=== PATIENT | male | born 1975 | race Caucasian/White ===

== ENCOUNTER 2019-02-23 07:42 | Day surgery (SDC) | payer OTHER ==
[~2019-02-23 07:42] MED LIST: ACETAMINOPHEN 325 MG TABLET PO PRN; CEFAZOLIN SODIUM 2 GM in DEXTROSE 5%-WATER 100 ML IV PRN; IBUPROFEN 800 MG in NORMAL SALINE 250 ML IV PRN; PREGABALIN 50 MG CAPSULE PO PRN
[2019-02-23] MEDS ORDERED: ACETAMINOPHEN 325 MG TABLET ONE (07:50)
[2019-02-23] MEDS ORDERED: PREGABALIN 50 MG CAPSULE ONE (07:51)
[2019-02-23] MEDS ORDERED: FAMOTIDINE INJ/PF 20 MG/2 ML SDV IV ONE (08:31)
[2019-02-23 08:49] LABS: HEMATOCRIT 44.8 % (37.9-51.0); HEMOGLOBIN 15.7 g/dL (13.5-17.0); MEAN CORPUSCULAR HEMOGLOBIN 30.9 pg (27.0-33.4); MEAN CORPUSCULAR HGB CONC 34.9 g/dL (32.0-36.0); MEAN CORPUSCULAR VOLUME 88 fl (80-97); PLATELET COUNT 230 10^3/uL (150-450); RED BLOOD COUNT 5.07 10^6/uL (4.35-5.55); RED CELL DISTRIBUTION WIDTH 12.7 % (11.5-14.0); WHITE BLOOD COUNT 6.4 10^3/uL (4.0-10.5)
[2019-02-23 09:16] LABS: ANION GAP 11 (5-19); BLOOD UREA NITROGEN 12 mg/dL (7-20); CALCIUM 9.4 mg/dL (8.4-10.2); CARBON DIOXIDE 26 mmol/L (22-30); CHLORIDE 103 mmol/L (98-107); GLUCOSE 107 mg/dL (75-110); POTASSIUM 3.9 mmol/L (3.6-5.0)
[2019-02-23] MEDS ORDERED: HYDROMORPHONE HCL INJ/PF 2 MG/ML AMPULE ONE (10:10)
[2019-02-23] MEDS ORDERED: FENTANYL CITRATE INJ/PF 250 MCG/5 ML AMPULE ONE (10:10)
[2019-02-23] MEDS ORDERED: MIDAZOLAM 2 MG/2 ML INJ ONE (10:10)
[2019-02-23] MEDS ORDERED: PROPOFOL INJ 200 MG/20 ML VIAL IV ONE (10:11)
[2019-02-23] MEDS ORDERED: BUPIVACAINE HCL 0.25 % INJ/PF (2.5 MG/1 ML) 30 ML VIAL ONE (10:16)
[2019-02-23] MEDS ORDERED: PROMETHAZINE HCL INJ 25 MG/1 ML VIAL IV PRN (11:08)
[2019-02-23] MEDS ORDERED: DIPHENHYDRAMINE HCL 50 MG/ML VIAL IV PRN (11:08)
[2019-02-23] MEDS ORDERED: FENTANYL CITRATE INJ/PF 100 MCG/2 ML AMPUL IV PRN ×3 (11:08)
[2019-02-23] MEDS ORDERED: HYDROCODONE/ACETAMINOPHEN 10-325 MG TABLET ONE (14:22)
[2019-02-23] MEDS ORDERED: LIDOCAINE 2% INJ-PF (20 MG/ML) 2 ML AMPUL ONE (14:26)
[2019-02-23] MEDS ORDERED: ONDANSETRON HCL INJ/PF 4 MG/2 ML SDV ONE (14:26)
[2019-02-23] MEDS ORDERED: SUCCINYLCHOLINE CHLORIDE INJ 200 MG/10 ML VIAL ONE (14:26)
[2019-02-23] MEDS ORDERED: DEXAMETHASONE SOD PHOSPHATE INJ 4 MG/1 ML VIAL ONE (14:26)
[2019-02-23] MEDS ORDERED: VECURONIUM BROMIDE INJ 10 MG VIAL IV ONE (14:26)
[2019-02-23 15:41] VITALS: BP 125/67
--- NOTE | 2019-03-03 11:33 | Discharge Summary ---
Discharge Summary (SDC) - Discharge Final Diagnosis: Recurrent right inguinal hernia Date of Surgery: 02/23/19 Discharge Date: 02/23/19 Condition: Stable Forms: ASU Anesthesia D/C Instruction, Discharge POC-Surgical Service Treatment or Instructions: DIET TOLERATED NO LIFTING OVER 10 POUNDS NO PUSHING, PULLING, OR LIFTING TAKE MEDICATIONS DIRECTED FOLLOW UP DIRECTED NO TUB BATHS OR SWIMMING MAY SHOWER IN 48 HOURS Referrals: KENDRA HANSEN MD [ACTIVE STAFF] - 03/12/19 2:00 pm Discharge Diet: As Tolerated Respiratory Treatments at Home: Deep Breathing/Coughing, Incentive Spirometer Discharge Activity: Balance Activity w/Rest, No Driving, No Lifting Over 10 Pounds, No Lifting/Push/Pulling, No tub bath Report the Following to Your Physician Immediately: Shortness of Breath, Nausea, Vomiting, Increase in Pain, Fever over 101 Degrees, Unusual Bleeding, Redness, Swelling, Warmth, Increased Soreness, Drainage-Yellow, Drainage-Preciado, Drainage- Green, Drainage-Foul Smelling, Large Clots, Numbness, Tingling Sensation, Wheezing, Seizure, IV Site Infection Signs
--- NOTE | 2019-03-03 11:39 | Operative Report ---
Nonrecallable Operative Report DATE OF SURGERY: 02/23/19 PREOPERATIVE DIAGNOSIS: Recurrent right inguinal hernia POSTOPERATIVE DIAGNOSIS: Recurrent right indirect inguinal hernia OPERATION: Robot-assisted recurrent right inguinal hernia repair with mesh SURGEON: KENDRA HANSEN ANESTHESIA: GA TISSUE REMOVED OR ALTERED: None COMPLICATIONS: None apparent ESTIMATED BLOOD LOSS: Minimal PROCEDURE: Drains/implants: Large right inguinal 3 DMax hernia mesh. Procedure in detail: After informed consent was obtained, the patient was brought into the operating room and laid in the supine position. The area of the abdomen was prepped and draped in a normal sterile fashion. A supraumbilical incision was created with a 15 blade scalpel. Dissection was carried through the subcutaneous tissue using sharp and blunt dissection. The linea alba fascia was incised sharply, the abdomen was entered sharply. The balloon trocar was inserted, and pneumoperitoneum was achieved. 2 right and left 8 mm robotic trochars were then placed under direct laparoscopic visualization. The robot was then brought over the patient and docked appropriately. I then assumed my position at the surgeon's console. Attention was turned to the right groin. A preperitoneal dissection was undertaken. The peritoneum was scored 3 cm superior to the recurrent right indirect inguinal hernia defect. The preperitoneal dissection was undertaken using sharp dissection, blunt dissection, and electrocautery. The hernia sac was cleared from the cord structures, taking great care not to injure the cord structures. Next, a 3 DMax large inguinal hernia mesh was placed into the preperitoneal space. It was situated over the defect. It was sutured medially and superiorly using 2-0 Vicryl suture in simple interrupted fashion. Once the mesh was found to lie in good place, the peritoneum was closed using 2-0 V Lock suture in simple running fashion. The repair was then inspected. It was found to be in good order. The robot was then undocked, and I scrubbed back into the case. The trochars were then removed under direct laparoscopic visualization. No bleeding was noted. The supraumbilical fascia was closed using 0 Vicryl suture in [id number] fashion. The overlying skin was closed using 4-0 Vicryl Rapide suture in subcuticular fashion. Dressings were placed, and the procedure was concluded. All sponge, instrument, needle counts were correct x2. Condition: Stable.
== END 2019-02-23 15:25 | disposition home or self-care (01) ==
LOC: OROUT 07:42
PROVIDERS: ATTEND Surgery
DX: K40.91 Unilateral inguinal hernia, without obstruction or gangrene, recurrent (principal); Z79.899 Other long term (current) drug therapy; G47.33 Obstructive sleep apnea (adult) (pediatric)
CPT/HCPCS: 49651; S2900; 36415; 80048; 830; 85027; 86850; 86900; 86901; C1781; J0330; J0690; J1100; J1170; J1741; J2250; J2405; J2704; J3010; J3490; J7050; J7060; S0028